=== PATIENT | male | born 1980 | race Caucasian/White ===

== ENCOUNTER 2021-10-15 04:25 | Emergency (ER) | payer OTHER ==
[~2021-10-15] VITALS: Ht 185.4 cm; Wt 93.0 kg
[2021-10-15 05:22] LABS: BILIRUBIN,URINE NEGATIVE (NEGATIVE); COLOR,URINE YELLOW (YELLOW); LEUKOCYTE ESTERASE ,URINE NEGATIVE (NEGATIVE); NITRITE, URINE NEGATIVE (NEGATIVE); PROTEIN,URINE NEGATIVE (NEGATIVE); UGLUCOSE NEGATIVE (NEGATIVE); UROBILINOGEN,URINE 0.2 EU/dL (0.2)
[2021-10-15 05:35] LABS: BASOPHILS # (AUTO) 0.1 K/uL (0.0-0.2); BASOPHILS % (AUTO) 0.4 % (0.0-2.0); EOSINOPHILS % (AUTO) 0.1 % (0.0-6.0); HEMATOCRIT 44 % (39-51); HEMOGLOBIN 14.4 g/dL (13.5-17.5); LYMPHOCYTES # (AUTO) 1.5 K/uL (0.8-4.8); LYMPHOCYTES % (AUTO) 7.9 % (20.0-44.0); MEAN CORPUSCULAR HGB CONC 33 g/dl (31.0-36.0); MEAN CORPUSCULAR VOLUME 87 fL (80-96); MONOCYTES # (AUTO) 1.1 K/uL (0.1-1.30); MONOCYTES % (AUTO) 6.2 % (2.0-12.0); NEUTROPHILS # (AUTO) 15.8 K/uL (1.8-8.9); NEUTROPHILS % (AUTO) 85.4 % (43.0-81.0); PLATELET COUNT (AUTO) 380 K/uL (150-450); RED BLOOD CELL COUNT(AUTO) 4.99 MIL/uL (4.5-6.0); WHITE BLOOD COUNT (AUTO) 18.5 K/uL (4.3-11.0)
[2021-10-15 05:48] LABS: ALANINE AMINOTRANSFERASE 30 U/L (12-78); ALCOHOL, BLOOD < 3 mg/dL (0-0); ALKALINE PHOSPHATASE 93 U/L (46-116); ASPARTATE AMINOTRANSFERASE 31 U/L (15-37); BILIRUBIN,DIRECT 0.2 mg/dL (0.0-0.2); BILIRUBIN,TOTAL 1.1 mg/dL (0.2-1.0); CALCIUM, SERUM 8.8 mg/dL (8.5-10.1); CARBON DIOXIDE 24 mmol/L (21-32); CHLORIDE 100 mmol/L (98-107); CREATININE 1.4 mg/dL (0.6-1.3); GLUCOSE 99 mg/dL (74-106); POTASSIUM 3.3 mmol/L (3.5-5.1); SODIUM SERUM 136 mmol/L (136-145); TOTAL PROTEIN, SERUM 7.8 g/dL (6.4-8.2); UREA NITROGEN, BLOOD 20 mg/dL (7-18)
[2021-10-15 05:56] LABS: ACETAMINOPHEN 0 ug/ml (10-30)
--- NOTE | 2021-10-15 07:10 | NUR ---
PT ASSESSED ON BED AWAKE AND ALERT, NOT IN RESPIRATORY DISTRESS, V/S STABLE, AWAITING [facility] FOR PT PSYCH ADMISSION.
[2021-10-15] MEDS ORDERED: POTASSIUM CHLORIDE 20 MEQ TAB.PRT.SR PO ONE ×2 (07:30→10:26)
[2021-10-15 08:14] LABS: BACTERIA,URINE Few /HPF (None Seen); RBC,URINE 21-50 /HPF (0-2); SQUAMOUS EPITHELIAL CELL,UR Few /HPF (None Seen)
--- NOTE | 2021-10-15 08:33 | NUR ---
BREAKFAST TRAY PROVIDED.
[2021-10-15] MEDS ORDERED: POTASSIUM CHLORIDE 10 MEQ TABLET.SA ONE (10:26)
--- NOTE | 2021-10-15 12:58 | NUR ---
[facility] CALLED ASKED FOR ETA OF [id number]
--- NOTE | 2021-10-15 13:44 | NUR ---
REPORT GIVEN TO EMT FOR PT TRANSFER TO [facility].
[2021-10-15 13:45] VITALS: BP 120/66
== END 2021-10-15 13:46 ==
LOC: ER 04:29
DX: R45.851 Suicidal ideations (principal); F29 Unspecified psychosis not due to a substance or known physiological condition; F31.9 Bipolar disorder, unspecified; F41.9 Anxiety disorder, unspecified; F15.10 Other stimulant abuse, uncomplicated; E87.6 Hypokalemia; N28.9 Disorder of kidney and ureter, unspecified; D72.829 Elevated white blood cell count, unspecified
CPT/HCPCS: 36415; 80048; 80076; 80143; 80307; 80320; 81001; 82550; 82553; 85025; 87426; 99285; C9803; G0480

== ENCOUNTER 2022-01-01 10:38 | Emergency (ER) | payer OTHER ==
[~2022-01-01] VITALS: Ht 180.3 cm; Wt 90.7 kg
[2022-01-01 11:25] LABS: BASOPHILS # (AUTO) 0.1 K/uL (0.0-0.2); BASOPHILS % (AUTO) 0.4 % (0.0-2.0); EOSINOPHILS % (AUTO) 0.1 % (0.0-6.0); HEMATOCRIT 46 % (39-51); LYMPHOCYTES # (AUTO) 2.2 K/uL (0.8-4.8); LYMPHOCYTES % (AUTO) 16.1 % (20.0-44.0); MEAN CORPUSCULAR HGB CONC 33 g/dl (31.0-36.0); MEAN CORPUSCULAR VOLUME 86 fL (80-96); MONOCYTES # (AUTO) 0.8 K/uL (0.1-1.30); MONOCYTES % (AUTO) 6.2 % (2.0-12.0); NEUTROPHILS # (AUTO) 10.6 K/uL (1.8-8.9); NEUTROPHILS % (AUTO) 77.2 % (43.0-81.0); PLATELET COUNT (AUTO) 371 K/uL (150-450); RED BLOOD CELL COUNT(AUTO) 5.32 MIL/uL (4.5-6.0); WHITE BLOOD COUNT (AUTO) 13.7 K/uL (4.3-11.0)
[2022-01-01 11:43] LABS: CALCIUM, SERUM 8.6 mg/dL (8.5-10.1); CARBON DIOXIDE 25 mmol/L (21-32); CHLORIDE 103 mmol/L (98-107); CREATININE 1.3 mg/dL (0.6-1.3); GLUCOSE 136 mg/dL (74-106); POTASSIUM 3.5 mmol/L (3.5-5.1); SODIUM SERUM 140 mmol/L (136-145); UREA NITROGEN, BLOOD 15 mg/dL (7-18)
[2022-01-01 11:49] LABS: ALANINE AMINOTRANSFERASE 34 U/L (12-78); ALBUMIN 4.3 g/dL (3.4-5.0); ALCOHOL, BLOOD < 3 mg/dL (0-0); ALKALINE PHOSPHATASE 97 U/L (46-116); ASPARTATE AMINOTRANSFERASE 22 U/L (15-37); BILIRUBIN,DIRECT 0.2 mg/dL (0.0-0.2); BILIRUBIN,TOTAL 0.7 mg/dL (0.2-1.0); TOTAL PROTEIN, SERUM 7.7 g/dL (6.4-8.2)
[2022-01-01 11:50] LABS: ACETAMINOPHEN < 0 ug/ml (10-30)
--- NOTE | 2022-01-01 12:00 | NUR ---
Lunch provided. Ate 100% On recliner NO acute distress. Directable/complian and Cooperative
[2022-01-01 12:26] LABS: BILIRUBIN,URINE NEGATIVE (NEGATIVE); COLOR,URINE YELLOW (YELLOW); LEUKOCYTE ESTERASE ,URINE NEGATIVE (NEGATIVE); NITRITE, URINE NEGATIVE (NEGATIVE); PROTEIN,URINE NEGATIVE (NEGATIVE); UGLUCOSE NEGATIVE (NEGATIVE); UROBILINOGEN,URINE 0.2 EU/dL (0.2)
[2022-01-01 12:46] LABS: BACTERIA,URINE Rare /HPF (None Seen); SQUAMOUS EPITHELIAL CELL,UR Few /HPF (None Seen); WBC,URINE 0-2 /HPF (0-3)
--- NOTE | 2022-01-01 13:30 | NUR ---
CLINICALS FAXED TO [facility].
--- NOTE | 2022-01-01 15:15 | NUR ---
Made aware of plan of care. Compliant and Cooperative
--- NOTE | 2022-01-01 17:56 | NUR ---
CALLED FOR UPDATE ON PATIENT. SPOKE TO [facility] AND PT IS ON WAITLIST FOR ADMISSION FOR [place]. WILL CALL US BACK WHEN THEY HAVE ACCEPTANCE INFO.
--- NOTE | 2022-01-01 19:09 | NUR ---
Sleeps intermittently on recliner. NO obvious distress
--- NOTE | 2022-01-02 07:46 | NUR ---
THE PATIENT IS RECEIVED IN ER #[id number]. THE PATIENT IS ALERT AND ORIENTED X4. DENIES PAIN. IN ROOM AIR AND DENIES SOB. RESPIRATION REGULAR AND UNLABORED. THE PATIENT IS SERVED BREAKFAST. WILL CONTINUE TO MONITOR THE PATIENT.
[2022-01-02 09:30] VITALS: BP 141/89
--- NOTE | 2022-01-02 09:31 | NUR ---
CALLED [facility] REGARDING PT ACCEPTANCE NUMBER FOR REPORT [phone] [phone] THE CARING MD WILL BE GIVEN DURING REPORT
--- NOTE | 2022-01-02 09:31 | NUR ---
PT ACCEPTED TO [facility]
--- NOTE | 2022-01-02 09:37 | NUR ---
CALLED [facility] AND SET UP BLS TRANSPORT ETA 1000
--- NOTE | 2022-01-02 09:44 | NUR ---
ATTEMPTED TO GIVE REPORT WAS TOLD TO CALL BACK IN 2 HOURS TO GIVE REPORT. WILL FOLLOW UP.
--- NOTE | 2022-01-02 10:42 | NUR ---
REPORT GIVEN TO NURSE BONE FROM [facility]
--- NOTE | 2022-01-02 10:46 | NUR ---
REPORT GIVEN TO AMBULANCE STAFF
--- NOTE | 2022-01-02 10:52 | NUR ---
THE PATIENT IS TRANSFERED TO [facility] VIA [facility] IN STABLE CONDITION.
== END 2022-01-02 10:53 ==
LOC: ER 10:44
DX: R45.851 Suicidal ideations (principal); F19.10 Other psychoactive substance abuse, uncomplicated; Z20.822 Contact with and (suspected) exposure to COVID-19; F31.9 Bipolar disorder, unspecified
CPT/HCPCS: 36415; 80048; 80076; 80143; 80307; 80320; 81001; 85025; 87426; 99285; C9803; G0480